=== PATIENT | female | born 1985 | race Caucasian/White ===

== ENCOUNTER → 2017-01-26 | Outpatient (CLI) | payer OTHER ==
--- NOTE | 2017-01-26 18:08 | RADIOLOGY REPORT (SQ) ---
EXAM DESCRIPTION: CT ABD/PELVIS WITH IV ORAL COMPLETED DATE/TIME: 01/26/2017 5:50 pm REASON FOR STUDY: LLQ ABDOMINAL PAIN R10.32 LEFT LOWER QUADRANT PAIN COMPARISON: None. TECHNIQUE: CT scan of the abdomen and pelvis performed using helical scanning technique with dynamic intravenous contrast injection and with oral contrast. Images reviewed with lung, soft tissue, and b one windows. Reconstructed coronal and sagittal MPR images reviewed. Delayed images for evaluation of the urinary system also acquired. All images stored on PACS. All CT scanners at this facility use dose modulation, iterative reconstruction, and/or weight based d osing when appropriate to reduce radiation dose to as low as reasonably achievable (ALARA). [facility]: Dose Right [facility]: CareDose [facility]: Dose Right [facility]: Teradose 4D [facility]: [employer] CONTRAST TYPE AND DOSE: contrast/concentration: Isovue 370.00 mg/ml; Total Contrast Delivered: 79.0 ml; Total Saline Delivered: 43.0 ml RENAL FUNCTION: None required. The patient is less than 50 years old. RADIATION DOSE: CT Rad equipment meets quality standard of care and radiation dose reduction techniq ues were employed. CTDIvol: NaN - NaN mGy. DLP: 0 mGy-cm.. LIMITATIONS: None. FINDINGS: LOWER CHEST: No significant findings. No nodules or infiltrates. LIVER: Normal size. No masses. No dilated ducts. SPLEEN: Normal size. No focal lesions. PANCREAS: No masses. No significant calcifications. No adjacent inflammation or peripancreatic fluid collections. Pancreatic duct not dilated. GALLBLADDER: No identified stones by CT criteria. No inflammatory changes to suggest cholecystitis. ADRENAL GLANDS: No significant masses or asymmetry. RIGHT KIDNEY AND URETER: No solid masses. No significant calcifications. No hydronephrosis or hyd roureter. LEFT KIDNEY AND URETER: No solid masses. No significant calcifications. No hydronephrosis or hydr oureter. AORTA AND VESSELS: No aneurysm. No dissection. Renal arteries, SMA, celiac without stenosis. RETROPERITONEUM: No retroperitoneal adenopathy, hemorrhage or masses. BOWEL AND PERITONEAL CAVITY: No masses or inflammatory changes. No free fluid or peritoneal masses. Multiple prominent mesenteric lymph nodes are identified and the possibility of a mesenteric adenitis should be considered. Other etiologies cannot be excluded. APPENDIX: Not identified PELVIS: No mass. A small amount of free fluid is identified in the cul-de-sac to the right of midlin e. Normal bladder. ABDOMINAL WALL: No masses. No hernias. BONES: No significant or acute findings. OTHER: No other significant finding. IMPRESSION: Multiple prominent mesenteric lymph nodes are identified in the possibility of a mesente steve adenitis should be considered. Other etiologies cannot be excluded. A small amount of free flui d is identified in the cul-de-sac to the right of midline. Other findings as noted above TECHNICAL DOCUMENTATION: JOB ID: [id number] Quality ID # [id number]: Final reports with documentation of one or more dose reduction techniques (e.g., Au tomated exposure control, adjustment of the mA and/or kV according to patient size, use of iterative reconstruction technique) 2010 [employer]- All Rights Reserved
== END ==
LOC: RAD 15:04
PROVIDERS: ATTEND Physician Assistant Medical
DX: R10.32 Left lower quadrant pain (principal)
CPT/HCPCS: 74177

== ENCOUNTER → 2018-03-21 | Outpatient (CLI) | payer OTHER ==
--- NOTE | 2018-03-21 12:04 | RADIOLOGY REPORT (SQ) ---
EXAM DESCRIPTION: U/S ABDOMEN LIMITED W/O DOP COMPLETED DATE/TIME: 03/21/2018 11:34 am REASON FOR STUDY: RUQ PAIN (R10.11) R10.11 RIGHT UPPER QUADRANT PAIN COMPARISON: None. TECHNIQUE: Dynamic and static grayscale images acquired of the abdomen and recorded on PACS. Additio nal selected color Doppler and spectral images recorded. LIMITATIONS: None. FINDINGS: PANCREAS: No masses. Visualized pancreatic duct normal caliber. LIVER: No masses. Echotexture normal. LIVER VASCULATURE: Normal directional flow of the main portal vein and hepatic veins. GALLBLADDER: No stones. Normal wall thickness. No pericholecystic fluid. ULTRASOUND-DETECTED LOWRY'S SIGN: Negative. INTRAHEPATIC DUCTS AND COMMON DUCT: CBD and intrahepatic ducts normal caliber. No filling defects. INFERIOR VENA CAVA: Normal flow. AORTA: No aneurysm. RIGHT KIDNEY: Normal size. Normal echogenicity. No solid or suspicious masses. No hydronephrosis. No calcifications. PERITONEAL AND RIGHT PLEURAL SPACE: No ascites or effusions. OTHER: No other significant findings. IMPRESSION: NORMAL RIGHT UPPER QUADRANT ULTRASOUND. TECHNICAL DOCUMENTATION: JOB ID: [id number] [employer]- All Rights Reserved Reading location - IP/workstation name: [email or web address]
== END ==
LOC: RAD 10:35
PROVIDERS: ATTEND Physician Assistant Medical
DX: R10.11 Right upper quadrant pain (principal)
CPT/HCPCS: 76705

== ENCOUNTER → 2018-03-25 | Outpatient (CLI) | payer OTHER ==
--- NOTE | 2018-03-25 12:45 | RADIOLOGY REPORT (SQ) ---
EXAM DESCRIPTION: NM HIDA SCAN WITH CCK COMPLETED DATE/TIME: 03/25/2018 11:50 am REASON FOR STUDY: RUQ PAIN R10.11 RIGHT UPPER QUADRANT PAIN COMPARISON: Abdominal ultrasound 03/21/2018 CT abdomen pelvis 01/26/2017 RADIONUCLIDE AND DOSE: DOSAGE RADIONUCLIDE: 5.1 millicuries Tc99m Mebrofenin. DOSAGE CCK: 1.7 micrograms. DOSAGE MORPHINE: Not required. The route of agent administration: Intravenous TECHNIQUE: Serial imaging right upper quadrant up to 60 minutes following injection of radionuclide. CCK injected after gallbladder visualized. LIMITATIONS: None. FINDINGS: LIVER: Normal visualization of liver parenchyma which clears by 60 minutes. INTRAHEPATIC BILE DUCTS: Normal visualization COMMON BILE DUCT: Normal visualization GALLBLADDER: Normal visualization. Calculated ejection fraction of 63%. Normal range is greater th an 35%. PHYSICAL RESPONSE: Patients presenting complaint was reproduced. OTHER: No other significant finding. IMPRESSION: No scintigraphic evidence of cystic duct or common duct obstruction. Normal gallbladder ejection fraction after IV CCK. IV CCK reproduced the patient's symptoms TECHNICAL DOCUMENTATION: JOB ID: [id number]- All Rights Reserved Reading location - IP/workstation name: [email or web address]
== END ==
LOC: RAD 08:33
PROVIDERS: ATTEND Physician Assistant Medical
DX: R10.11 Right upper quadrant pain (principal)
CPT/HCPCS: 78227; J2805; A9537; Q9969

== ENCOUNTER → 2018-12-16 | Outpatient (CLI) | payer OTHER ==
--- NOTE | 2018-12-16 12:47 | WOMENS IMAGING REPORT ---
EXAM DESCRIPTION: U/S PELVIS NON-OB; TRANSVAGINAL ULTRASOUND COMPLETED DATE/TIME: 12/16/2018 12:22 pm REASON FOR STUDY: R10.32 LEFT LOWER QUADRANT PAIN R10.32 LEFT LOWER QUADRANT PAIN LMP 11/30/2018 COMPARISON: None. TECHNIQUE: Dynamic and static grayscale images acquired of the pelvis via transabdominal approach an d recorded on PACS. Additional selected color Doppler and spectral images recorded. LIMITATIONS: None. FINDINGS: UTERUS: Contour normal. No mass. ENDOMETRIAL STRIPE: No focal or generalized thickening. No masses. CERVIX: Poorly seen. RIGHT OVARY AND DOPPLER: Normal size. No worrisome masses. Normal arterial vascular flow without evid ence for torsion. LEFT OVARY AND DOPPLER: Ovary not seen. FREE FLUID: Free fluid is seen in the posterior cul-de-sac. OTHER: No other significant finding. MEASUREMENTS: UTERUS: 9.1 x 5.1 x 6.6 cm. ENDOMETRIAL STRIPE: 13 mm. RIGHT OVARY: 3.4 x 2.5 x 3.6 cm. LEFT OVARY: Ovary not seen. IMPRESSION: There is some free fluid. No other significant finding. TECHNICAL DOCUMENTATION: JOB ID: [id number]- All Rights Reserved Rev-07/23 Reading location - IP/workstation name: [email or web address]
--- NOTE | 2018-12-16 12:47 | WOMENS IMAGING REPORT ---
EXAM DESCRIPTION: U/S PELVIS NON-OB; TRANSVAGINAL ULTRASOUND COMPLETED DATE/TIME: 12/16/2018 12:22 pm REASON FOR STUDY: R10.32 LEFT LOWER QUADRANT PAIN R10.32 LEFT LOWER QUADRANT PAIN LMP 11/30/2018 COMPARISON: None. TECHNIQUE: Dynamic and static grayscale images acquired of the pelvis via transabdominal approach an d recorded on PACS. Additional selected color Doppler and spectral images recorded. LIMITATIONS: None. FINDINGS: UTERUS: Contour normal. No mass. ENDOMETRIAL STRIPE: No focal or generalized thickening. No masses. CERVIX: Poorly seen. RIGHT OVARY AND DOPPLER: Normal size. No worrisome masses. Normal arterial vascular flow without evid ence for torsion. LEFT OVARY AND DOPPLER: Ovary not seen. FREE FLUID: Free fluid is seen in the posterior cul-de-sac. OTHER: No other significant finding. MEASUREMENTS: UTERUS: 9.1 x 5.1 x 6.6 cm. ENDOMETRIAL STRIPE: 13 mm. RIGHT OVARY: 3.4 x 2.5 x 3.6 cm. LEFT OVARY: Ovary not seen. IMPRESSION: There is some free fluid. No other significant finding. TECHNICAL DOCUMENTATION: JOB ID: [id number]- All Rights Reserved Rev-07/23 Reading location - IP/workstation name: [email or web address]
== END ==
LOC: WI 11:14
PROVIDERS: ATTEND Physician Assistant Medical
DX: R10.32 Left lower quadrant pain (principal)
CPT/HCPCS: 76830; 76856

== ENCOUNTER 2019-02-16 08:19 | Day surgery (SDC) | payer OTHER ==
[2019-02-15 09:52] LABS: APPEARANCE,URINE CLEAR; BILIRUBIN,URINE NEGATIVE (NEGATIVE); COLOR,URINE YELLOW; GLUCOSE, URINE NEGATIVE (NEGATIVE); KETONES,URINE NEGATIVE (NEGATIVE); LEUKOCYTE ESTERASE,URINE NEGATIVE (NEGATIVE); NITRITE,URINE NEGATIVE (NEGATIVE); PROTEIN,URINE NEGATIVE (NEGATIVE); URINE SPECIFIC GRAVITY 1.005; UROBILINOGEN,URINE NEGATIVE mg/dL (<2.0)
[2019-02-15 10:43] LABS: HEMATOCRIT 36.3 % (36.0-47.0); HEMOGLOBIN 12.7 g/dL (12.0-15.5); MEAN CORPUSCULAR HEMOGLOBIN 27.2 pg (27.0-33.4); MEAN CORPUSCULAR HGB CONC 35.1 g/dL (32.0-36.0); MEAN CORPUSCULAR VOLUME 77 fl (80-97); PLATELET COUNT 262 10^3/uL (150-450); RED BLOOD COUNT 4.68 10^6/uL (3.72-5.28); RED CELL DISTRIBUTION WIDTH 13.5 % (11.5-14.0); WHITE BLOOD COUNT 7.7 10^3/uL (4.0-10.5)
[2019-02-15 11:08] LABS: ALBUMIN 4.2 g/dL (3.5-5.0); ALKALINE PHOSPHATASE 55 U/L (38-126); ANION GAP 11 (5-19); ASPARTATE AMINO TRANSFERASE 15 U/L (14-36); BILIRUBIN,DIRECT 0.1 mg/dL (0.0-0.4); BILIRUBIN,TOTAL 0.6 mg/dL (0.2-1.3); BLOOD UREA NITROGEN 11 mg/dL (7-20); CALCIUM 9.5 mg/dL (8.4-10.2); CARBON DIOXIDE 23 mmol/L (22-30); CHLORIDE 109 mmol/L (98-107); GLUCOSE 83 mg/dL (75-110); POTASSIUM 4.3 mmol/L (3.6-5.0); TOTAL PROTEIN 7.2 g/dL (6.3-8.2)
[~2019-02-16 08:19] MED LIST: CLINDAMYCIN 900 MG/D5W RTU 900 MG/50 ML RTUPB IV PRN; DEXAMETHASONE SOD PHOSPHATE INJ 4 MG/1 ML VIAL ONE; GENTAMICIN SULFATE 120 MG in DEXTROSE 5%-WATER 100 ML IV PRN; KETOROLAC TROMETHAMINE 60 MG/2 ML SDV ONE; LACTATED RINGERS 1000 ML IV PRN; LIDOCAINE 0.5% INJ-PF (5 MG/ML) 50 ML SDV SUBCUT PRN; ONDANSETRON HCL INJ/PF 4 MG/2 ML SDV ONE; ROCURONIUM BROMIDE INJ 50 MG/5 ML VIAL IV ONE; SUCCINYLCHOLINE CHLORIDE INJ 200 MG/10 ML VIAL ONE
[2019-02-16] MEDS ORDERED: MIDAZOLAM 2 MG/2 ML INJ ONE (08:39)
[2019-02-16] MEDS ORDERED: HYDROMORPHONE HCL INJ/PF 2 MG/ML AMPULE ONE (08:39)
[2019-02-16] MEDS ORDERED: FENTANYL CITRATE INJ/PF 100 MCG/2 ML AMPUL ONE (08:39)
[2019-02-16] MEDS ORDERED: PROPOFOL INJ 200 MG/20 ML VIAL IV ONE (08:40)
[2019-02-16] MEDS ORDERED: CLINDAMYCIN 900 MG/D5W RTU 900 MG/50 ML RTUPB IV ONE (09:33)
[2019-02-16] MEDS ORDERED: DIPHENHYDRAMINE HCL 50 MG/ML VIAL IV PRN (10:55)
[2019-02-16] MEDS ORDERED: MORPHINE SULFATE 10 MG/ML INJ IV PRN (10:55)
[2019-02-16] MEDS ORDERED: PROMETHAZINE HCL INJ 25 MG/1 ML VIAL IV PRN (10:55)
[2019-02-16] MEDS ORDERED: FENTANYL CITRATE INJ/PF 100 MCG/2 ML AMPUL IV PRN ×3 (10:55)
[2019-02-16] MEDS ORDERED: OXYCODONE-ACETAMINOPHEN 5-325 MG TABLET PO PRN ×2 (10:55)
[2019-02-16] MEDS ORDERED: MEPERIDINE HCL/PF INJ 25 MG/1 ML DISP.SYRIN IV PRN (10:55)
[2019-02-16] MEDS ORDERED: ONDANSETRON HCL INJ/PF 4 MG/2 ML SDV IV PRN (10:55)
[2019-02-16] MEDS ORDERED: ACETAMINOPHEN 1,000 MG/100 ML RTUPB IV ONE (13:17)
[2019-02-16] MEDS: FENTANYL CITRATE INJ/PF 100 MCG/2 ML AMPUL ONE ×2 (13:28→13:33)
--- NOTE | 2019-02-16 14:07 | Operative Report ---
Operative Report DATE OF SURGERY: 02/16/19 PREOPERATIVE DIAGNOSIS: Abnormal uterine bleeding pelvic pain POSTOPERATIVE DIAGNOSIS: Same OPERATION: Robotic assisted total laparoscopic hysterectomy with bilateral salpingectomy SURGEON: TALON ODONNELL [facility] TECH: OXANA ROSALES ANESTHESIA: GA TISSUE REMOVED OR ALTERED: Uterus cervix bilateral fallopian tubes COMPLICATIONS: None ESTIMATED BLOOD LOSS: 200 cc INTRAOPERATIVE FINDINGS: 10-week size uterus normal ovaries normal fallopian tubes left adnexa with mild adhesions to the pelvic sidewall adhesions of the intestine to the left pelvic sidewall PROCEDURE: Patient was taken to the operating room prepared and draped in normal sterile fashion in dorsolithotomy position. Under sterile conditions a Alves catheter was placed to gravity. Speculum was placed into the vagina and the cervix was grasped on the anterior lip with a single-tooth tenaculum. The cervix was then dilated to accommodate a medium V care uterine manipulator. Manipulate it was placed gloves were changed and attention was turned to the upper portion of the case. A 2-1/2 cm umbilical skin incision was made 11 blade and this was carried through to the underlying layer of fascia with the same 11 blade. It was grasped to Hilda's acted with Ellis's. New cavity was entered bluntly. A GelPort was placed in a normal fashion the camera port and air seal in the appropriate locations. [place] was then inflated with approximately 2 L of CO2 gas. The camera was then introduced into the peritoneal cavity through the camera port and the patient was placed in steep Trendelenburg. The above findings were noted. Under direct visualization two 5 mm ports were placed approximately 10 cm on either side of the umbilicus. The robot was then docked with the vessel sealer placed on the patient's left and the monopolar scissors placed placed on the patient's right. I then unscrubbed and set at the robotic console beginning with the left adnexa the adhesions were freed with both sharp and blunt dissection using the scissor. The fallopian tube was then transected from the uterus using the vessel sealer and monopolar scissors as needed. The fallopian tube was then removed through the assistance port. The ovarian ligament was then transected using the vessel sealer. The uterine artery was skeletonized using blunt dissection and ligated using the vessel sealer down to the level of the external cervical os. The bladder flap was then begun using monopolar scissors and blunt dissection over the V care cup noted through the mucosa. Attention was then turned to the right adnexa where the fallopian tube was transected in a similar fashion. The utero-ovarian ligament was transected using the vessel sealer. The Uterine artery was then transected using the vessel sealer and skeletonized using blunt dissection. The vessel sealer was again used to completely transect the uterine artery down to the level of the external cervical os. The bladder flap was completed using similar sharp and blunt dissection. Once the bladder was felt to be adequately away from the lower uterine segment, the colpotomy was begun on the anterior aspect of the cervix following the outline of the V care cup mucosa. The cup was followed in a circumferential fashion completely around the cervix estimate was completely freed. The specimen was then removed through the vaginal defect. The instruments were then changed to a Rex needle motorcoach driver and pro-grasp. AV lock needle was introduced through the assistance port. The lock needle was used to close the vaginal cuff and hemostasis. The needle was then removed through the assistance port. The peritoneal cavity was carefully inspected the ureters were noted to both be peristalsing and there was no signs of hydroureter. The robot was then undocked. The fascia was closed at the umbilical skin incision seen 0 Vicryl 3 skin incisions were closed using 4-0 Vicryl. Sponge lap and needle counts were correct x2 and the patient was taken to recovery in stable condition.
[2019-02-16] MEDS ORDERED: RINGERS SOLUTION,LACTATED 1,000 ML IV PRN (14:13)
[2019-02-16] MEDS ORDERED: IBUPROFEN 800 MG TABLET PO PRN (14:14)
[2019-02-16] MEDS ORDERED: MORPHINE SULFATE 10 MG/ML INJ ONE (14:25)
[2019-02-16] MEDS: MORPHINE SULFATE 10 MG/ML INJ IV PRN ×2 (14:34→20:36)
[2019-02-16] MEDS: OXYCODONE-ACETAMINOPHEN 5-325 MG TABLET PO PRN (18:03)
[2019-02-16] MEDS: KETOROLAC TROMETHAMINE INJ/PF 30 MG/1 ML SDV IV SCH (23:41)
[2019-02-17] MEDS: OXYCODONE-ACETAMINOPHEN 5-325 MG TABLET PO PRN (01:42)
[2019-02-17] MEDS ORDERED: ONDANSETRON ODT 4 MG TAB (6 TAB/ER DISP) PO PRN (03:45)
[2019-02-17] MEDS: MORPHINE SULFATE 10 MG/ML INJ IV PRN (03:57)
[2019-02-17] MEDS ORDERED: ONDANSETRON 4 MG TAB.RAPDIS PO PRN (04:00)
[2019-02-17] MEDS: KETOROLAC TROMETHAMINE INJ/PF 30 MG/1 ML SDV IV SCH (05:26)
[2019-02-17 06:09] LABS: HEMATOCRIT 32.1 % (36.0-47.0); HEMOGLOBIN 11.3 g/dL (12.0-15.5); MEAN CORPUSCULAR HEMOGLOBIN 27.2 pg (27.0-33.4); MEAN CORPUSCULAR HGB CONC 35.2 g/dL (32.0-36.0); MEAN CORPUSCULAR VOLUME 77 fl (80-97); PLATELET COUNT 237 10^3/uL (150-450); RED BLOOD COUNT 4.15 10^6/uL (3.72-5.28); RED CELL DISTRIBUTION WIDTH 13.8 % (11.5-14.0); WHITE BLOOD COUNT 11.1 10^3/uL (4.0-10.5)
--- NOTE | 2019-02-17 07:52 | PDOC DISCHARGE SUMMARY ---
Impression - Admit/DC Date/PCP Admission Date/Primary Care Provider: JEANNINE VILLANUEVA PA-C Discharge Date: 02/17/19 - Discharge Diagnosis (1) Abnormal uterine bleeding Is this a current diagnosis for this admission?: Yes (2) Pelvic pain Is this a current diagnosis for this admission?: Yes - Assessment Summary: underwent RATLH w/ b/l salpingectomy and lysis of adhesions. uncomplicated post operative course. tolerating a regular diet - Additional Information Resuscitation Status: Full Code Discharge Diet: As Tolerated Discharge Activity: Balance Activity w/Rest, No Driving, No Lifting Over 10 Pounds, No Lifting/Push/Pulling, Pelvic Rest, No tub bath Referrals: JEANNINE VILLANUEVA PA-C [Primary Care Provider] - Prescriptions: Oxycodone HCl/Acetaminophen [Percocet 5-325 mg Tablet] 1 tab PO Q6HP PRN #30 tablet PRN Reason: Ibuprofen [Motrin 800 mg Tablet] 800 mg PO Q8HP PRN #60 tablet PRN Reason: Home Medications: Albuterol Sulfate [Albuterol Sulfate Hfa] 2 puff PO QID PRN 02/15/19 Bupropion HCl [Wellbutrin Xl 300mg 24hr Tablet] 1 tab PO DAILY 02/15/19 Cetirizine HCl [Zyrtec 10 mg Tablet] 1 tab PO DAILY 02/15/19 Montelukast Sodium [Singulair 10 mg Tablet] 1 tab PO DAILY 02/15/19 Multivitamin [Daily Multiple Vitamin] 1 tab PO DAILY 02/15/19 Topiramate [Topamax 25 mg Tablet] 50 mg PO DAILY 02/15/19 Ibuprofen [Motrin 800 mg Tablet] 800 mg PO Q8HP PRN #60 tablet 02/17/19 Oxycodone HCl/Acetaminophen [Percocet 5-325 mg Tablet] 1 tab PO Q6HP PRN #30 tablet 02/17/19 History of Present Illiness History of Present Illness: CHELSEA TEE is a 33 year old female Physical Exam - Physical Exam Vital Signs: Temp Pulse Resp BP Pulse Ox 97.8 F 74 16 133/85 H 98 02/17/19 03:34 02/17/19 03:34 02/17/19 03:34 02/17/19 03:34 02/17/19 03:34 Intake & Output 02/16/19 02/17/19 02/18/19 06:59 06:59 06:59 Intake Total 4140 Output Total 1925 Balance 2215 Weight 88.45 kg 96.5 kg Results Laboratory Results: WBC 11.1 10^3/uL (4.0-10.5) H 02/17/19 05:11 RBC 4.15 10^6/uL (3.72-5.28) 02/17/19 05:11 Hgb 11.3 g/dL (12.0-15.5) L 02/17/19 05:11 Hct 32.1 % (36.0-47.0) L 02/17/19 05:11 MCV 77 fl (80-97) L 02/17/19 05:11 MCH 27.2 pg (27.0-33.4) 02/17/19 05:11 MCHC 35.2 g/dL (32.0-36.0) 02/17/19 05:11 RDW 13.8 % (11.5-14.0) 02/17/19 05:11 Plt Count 237 10^3/uL (150-450) 02/17/19 05:11 Sodium 142.8 mmol/L (137-145) 02/15/19 09:49 Potassium 4.3 mmol/L (3.6-5.0) 02/15/19 09:49 Chloride 109 mmol/L (98-107) H 02/15/19 09:49 Carbon Dioxide 23 mmol/L (22-30) 02/15/19 09:49 Anion Gap 11 (5-19) 02/15/19 09:49 BUN 11 mg/dL (7-20) 02/15/19 09:49 Creatinine 0.86 mg/dL (0.52-1.25) 02/15/19 09:49 Est GFR ( Amer) > 60 (>60) 02/15/19 09:49 Est GFR (MDRD) Non-Af > 60 (>60) 02/15/19 09:49 Glucose 83 mg/dL (75-110) 02/15/19 09:49 Calcium 9.5 mg/dL (8.4-10.2) 02/15/19 09:49 Total Bilirubin 0.6 mg/dL (0.2-1.3) 02/15/19 09:49 Direct Bilirubin 0.1 mg/dL (0.0-0.4) 02/15/19 09:49 Neonat Total Bilirubin Not Reportable 02/15/19 09:49 Neonat Direct Bilirubin Not Reportable 02/15/19 09:49 Neonat Indirect Bili Not Reportable 02/15/19 09:49 AST 15 U/L (14-36) 02/15/19 09:49 ALT 12 U/L (<35) 02/15/19 09:49 Alkaline Phosphatase 55 U/L (38-126) 02/15/19 09:49 Total Protein 7.2 g/dL (6.3-8.2) 02/15/19 09:49 Albumin 4.2 g/dL (3.5-5.0) 02/15/19 09:49 Urine Color YELLOW 02/15/19 09:15 Urine Appearance CLEAR 02/15/19 09:15 Urine pH 8.0 (5.0-9.0) 02/15/19 09:15 Ur Specific [place] 1.005 02/15/19 09:15 Urine Protein NEGATIVE mg/dL (NEGATIVE) 02/15/19 09:15 Urine Glucose (UA) NEGATIVE mg/dL (NEGATIVE) 02/15/19 09:15 Urine Ketones NEGATIVE mg/dL (NEGATIVE) 02/15/19 09:15 Urine Blood MODERATE (NEGATIVE) H 02/15/19 09:15 Urine Nitrite NEGATIVE (NEGATIVE) 02/15/19 09:15 Urine Bilirubin NEGATIVE (NEGATIVE) 02/15/19 09:15 Urine Urobilinogen NEGATIVE mg/dL (<2.0) 02/15/19 09:15 Ur Leukocyte Esterase NEGATIVE (NEGATIVE) 02/15/19 09:15 Urine WBC (Auto) 1 /HPF 02/15/19 09:15 Urine RBC (Auto) 1 /HPF 02/15/19 09:15 Urine Bacteria (Auto) TRACE /HPF 02/15/19 09:15 Squamous Epi Cells Auto 1 /HPF 02/15/19 09:15 Urine Mucus (Auto) RARE /LPF 02/15/19 09:15 Urine Ascorbic Acid NEGATIVE (NEGATIVE) 02/15/19 09:15 Urine HCG, Qual NEGATIVE (NEGATIVE) 02/16/19 08:50 Blood Type O NEGATIVE 02/15/19 09:49 Antibody Screen NEGATIVE 02/15/19 09:49 Stroke Is this a Stroke Patient?: No Acute Heart Failure - Is this a Heart Failure Patient?: No
[2019-02-17 09:32] VITALS: BP 116/65
== END 2019-02-17 10:00 | disposition home or self-care (01) ==
LOC: OROUT 08:19 → 2S 14:10 → OROUT 02-17 10:00
PROVIDERS: ATTEND Obstetrics & Gynecology
DX: D25.1 Intramural leiomyoma of uterus (principal); R10.2 Pelvic and perineal pain; N93.9 Abnormal uterine and vaginal bleeding, unspecified; Z88.0 Allergy status to penicillin; Z88.8 Allergy status to other drugs, medicaments and biological substances; Z88.3 Allergy status to other anti-infective agents
CPT/HCPCS: 58571; S2900; 36415; 80053; 81001; 81025; 840; 85027; 86850; 86900; 86901; 88307; A4649; J0131; J0330; J1100; J1170; J1580; J1885; J2250; J2270; J2405; J2704; J3010; J3490; J7060; J7120; S0119